=== PATIENT | female | born 1995 | race American Indian/Alaskan Native ===

== ENCOUNTER 2018-08-25 20:42 | Emergency (ER) | payer MEDICAID ==
[2018-08-25 21:15] VITALS: BMI 23.1
[2018-08-25 21:34] VITALS: RESP 18; O2SAT 100
[2018-08-25 22:13] LABS: PH,URINE 6.5 (4.7-8.0); URINE APPEARANCE SL CLOUDY (CLEAR); URINE BILIRUBIN NEGATIVE (NEGATIVE); URINE BLOOD SMALL (NEGATIVE); URINE COLOR YELLOW (YELLOW); URINE GLUCOSE (UA) NEGATIVE (NEGATIVE); URINE LEUKOCYTE ESTERASE TRACE Leu/uL (NEGATIVE); URINE PROTEIN NEGATIVE mg/dL (<30 mg/dL); URINE UROBILINOGEN 0.2 E.U./dL (<1 E.U./dL)
[2018-08-25 22:24] LABS: URINE BACTERIA FEW /hpf
--- NOTE | 2018-08-25 23:39 | ED PDOC ---
Arrival/HPI - General Chief Complaint: Back Pain Time Seen by Provider: 08/25/18 21:37 Historian: Patient - History of Present Illness Narrative History of Present Illness (Text): 08/25/18 21:37 Jeaneth Cooper is a 22 year old female, with no significant past medical history, who presents to the emergency department complaining of neck and left rib pain s/p mechanical fall. Patient informs falling while jumping on a trampoline in a park. Patient denies head injury or loss of consciousness. Patient denies any fevers, chills, headache, dizziness, vision changes, chest pain, shortness of breath, dyspnea on exertion, cough, abdominal pain, nausea, vomiting, diarrhea, bowel/bladder incontinence, dysuria, hematuria, back pain, or any other complaint. Time/Duration: Prior to Arrival Symptom Onset: Sudden Symptom Course: Unchanged Activities at Onset: Light Context: Other (Jumping) Past Medical History - Provider Review Nursing Documentation Reviewed: Yes - Reproductive Currently : No - Psychiatric Hx Substance Use: No - Surgical History Other/Comment: breast reduction. left ACL repair. - Anesthesia Hx Anesthesia: Yes Hx Anesthesia Reactions: No Family/Social History - Physician Review Nursing Documentation Reviewed: Yes Family/Social History: No Known Family HX Smoking Status: Never Smoked Hx Alcohol Use: Yes Frequency of alcohol use: Socially Hx Substance Use: No Allergies/Home Meds Allergies/Adverse Reactions: Allergies No Known Allergies Allergy (Verified 08/25/18 21:15) Review of Systems - Physician Review All systems were reviewed & negative as marked: Yes - Review of Systems Constitutional: absent: Fevers, Other (chills) Eyes: absent: Vision Changes Respiratory: absent: SOB, Cough Cardiovascular: absent: Chest Pain, MCDANIELS Gastrointestinal: absent: Abdominal Pain, Diarrhea, Nausea, Vomiting, Other (bowel incontinence) Genitourinary Female: absent: Dysuria, Hematuria, Other (urinary incontinence) Musculoskeletal: Arthralgias, Neck Pain (left rib pain). absent: Back Pain Neurological: absent: Headache, Dizziness Physical Exam Vital Signs Temp Pulse Resp BP Pulse Ox 08/25/18 21:33 98.2 F 85 18 121/73 100 Temperature: Afebrile Blood Pressure: Normal Pulse: Regular Respiratory Rate: Normal Appearance: Positive for: Well-Appearing, Non-Toxic, Comfortable Pain Distress: None Mental Status: Positive for: Alert and Oriented X 3 - Systems Exam Head: Present: Atraumatic, Normocephalic Pupils: Present: PERRL Extroacular Muscles: Present: EOMI Conjunctiva: Present: Normal Mouth: Present: Moist Mucous Membranes Neck: Present: Paraspinal Tenderness Respiratory/Chest: Present: Clear to Auscultation, Good Air Exchange. No: Respiratory Distress, Accessory Muscle Use Cardiovascular: Present: Regular Rate and Rhythm, Normal S1, S2. No: Murmurs Abdomen: Present: Normal Bowel Sounds. No: Tenderness, Distention, Peritoneal Signs Back: Present: Normal Inspection Upper Extremity: Present: Tenderness (tenderness to left ribs posteriorly), Neurovascularly Intact. No: Cyanosis, Edema Lower Extremity: Present: Normal Inspection. No: Edema Neurological: Present: GCS=15, CN II-XII Intact, Speech Normal Skin: Present: Warm, Dry, Normal Color. No: Rashes Psychiatric: Present: Alert, Oriented x 3, Normal Insight, Normal Concentration Medical Decision Making ED Course and Treatment: 08/25/18 21:37 Impression: Patient is a 22 year old female who presents to the emergency department with neck pain and left rib pain s/p mechanical fall prior to arrival. Pt states she fell while jumping on a trampoline in a park. Differential Diagnosis included but are not limited to: Plan: -- X-Ray C-Spine -- Urinalysis w/ Micro -- Reassess and disposition Prior Visits: Notes and results from previous visits were reviewed. Progress Notes: - Lab Interpretations Lab Results: Urine Color Yellow (YELLOW) 08/25/18 21:55 Urine Appearance Sl cloudy (CLEAR) 08/25/18 21:55 Urine pH 6.5 (4.7-8.0) 08/25/18 21:55 Ur Specific [place] 1.025 (1.005-1.035) 08/25/18 21:55 Urine Protein Negative mg/dL (<30 mg/dL) 08/25/18 21:55 Urine Glucose (UA) Negative mg/dL (NEGATIVE) 08/25/18 21:55 Urine Ketones Negative mg/dL (NEGATIVE) 08/25/18 21:55 Urine Blood Small (NEGATIVE) H 08/25/18 21:55 Urine Nitrate Negative (NEGATIVE) 08/25/18 21:55 Urine Bilirubin Negative (NEGATIVE) 08/25/18 21:55 Urine Urobilinogen 0.2 E.U./dL (<1 E.U./dL) 08/25/18 21:55 Ur Leukocyte Esterase Trace Lisa/uL (NEGATIVE) H 08/25/18 21:55 Urine RBC 2 - 5 /hpf (0-2) H 08/25/18 21:55 Urine WBC 1 - 3 /hpf (0-6) 08/25/18 21:55 Ur Epithelial Cells 3 - 4 /hpf (0-5) 08/25/18 21:55 Urine Bacteria Few /hpf (NONE) 08/25/18 21:55 - RAD Interpretation Radiology Orders: 08/25/18 21:48 CERVICAL SPINE >18YR W/OBLIQUE [RAD] Stat RIBS LEFT & PA CHEST [RAD] Stat - Scribe Statement The provider has reviewed the documentation as recorded by the Scribe David Darby All medical record entries made by the Scribe were at my direction and personally dictated by me. I have reviewed the chart and agree that the record accurately reflects my personal performance of the history, physical exam, medical decision making, and the department course for this patient. I have also personally directed, reviewed, and agree with the discharge instructions and disposition. Disposition/Present on Arrival - Present on Arrival Any Indicators Present on Arrival: No History of DVT/PE: No History of Uncontrolled Diabetes: No Urinary Catheter: No History of Decub. Ulcer: No History Surgical Site Infection Following: None - Disposition Have Diagnosis and Disposition been Completed?: Yes Diagnosis: Cervical strain, Rib contusion, UTI (urinary tract infection) Disposition: HOME/ ROUTINE Disposition Time: 23:25 Condition: GOOD Discharge Instructions (ExitCare): Urinary Tract Infection, Adult (DC), Cervical Muscle Strain, Bruised Rib Additional Instructions: use soft collar as needed advil for pain Prescriptions: Cephalexin [Keflex] 500 mg PO BID #14 capsule Referrals: Daisy Swenson MD [Medical Doctor] - Follow up with primary Forms: [employer] ([place]ian)
[2018-08-26 00:16] VITALS: BP 118/65; PULSE 80; TEMP 98
--- NOTE | 2018-08-26 10:14 | RAD ---
Date of service: 08/25/2018 PROCEDURE: Cervical Spine Radiographs. HISTORY: Pain. COMPARISON: None available. FINDINGS: BONES: Alignment maintained. No fracture. Dens Intact. DISC SPACES: Normal. SOFT TISSUES: Normal. No prevertebral soft tissue swelling. OTHER FINDINGS: None. IMPRESSION: Normal cervical spine radiographs
--- NOTE | 2018-08-26 10:26 | RAD ---
Date of service: 08/25/2018 PROCEDURE: Radiographs of the Chest and Left Ribs. HISTORY: fall COMPARISON: None available. TECHNIQUE: Frontal radiograph of the chest and multiple oblique radiographs of the left ribs were obtained. FINDINGS: LEFT RIBS: No fracture or focal lesion visualized. LUNGS: Clear. PLEURA: No pneumothorax or pleural fluid. CARDIOVASCULAR: Normal cardiac size. No pulmonary vascular congestion. No aortic atherosclerotic calcification present OTHER FINDINGS: None. IMPRESSION: Unremarkable radiographs of the chest and left ribs. No left rib fracture.
== END 2018-08-25 23:22 | disposition home or self-care (01) ==
LOC: ED 20:42 → MERGE 20:42 → ED 23:22
DX: S16.1XXA Strain of muscle, fascia and tendon at neck level, initial encounter (principal); S20.212A Contusion of left front wall of thorax, initial encounter; W17.89XA Other fall from one level to another, initial encounter; Y93.44 Activity, trampolining; Y92.830 Public park as the place of occurrence of the external cause; N39.0 Urinary tract infection, site not specified